=== PATIENT | male | born 1945 | race Caucasian/White ===

== ENCOUNTER → 2016-10-24 | Outpatient (CLI) | payer OTHER | LOC: BMCIMAGING 11:36 | PROVIDERS: ATTEND Nurse Practitioner Adult Health | DX: E04.1 Nontoxic single thyroid nodule (principal) | CPT/HCPCS: 76536-PO ==

== ENCOUNTER → 2017-01-06 | Outpatient (CLI) | payer OTHER ==
[~2017-01-06] MED LIST: LIDOCAINE 1% 300 MG/30 ML SDV ONE
== END ==
LOC: FIMAGING 12:20
PROVIDERS: ATTEND Family Medicine
PROC: 0G9K3ZX Drainage of Thyroid Gland, Percutaneous Approach, Diagnostic (ICD-10-PCS; principal; 2017-01-06)
DX: E04.1 Nontoxic single thyroid nodule (principal)

== ENCOUNTER 2017-03-07 10:28 | Observation (INO) | payer OTHER ==
[2017-03-07] MEDS ORDERED: LIDO/EPI 1% **Not for Epidural 20 ML MDV ONE (11:28)
[2017-03-07] MEDS ORDERED: LR 1,000 ML IV ONE (11:40)
[2017-03-07] MEDS ORDERED: ceFAZolin 2 GM/DEXTROSE 100 ML IV ONE (12:14)
--- NOTE | 2017-03-07 12:14 | PDHPUP ---
History & Physical Update H&P update statement: This history and physical update is based on an assessment of the patient which was completed after admission or registration (within 24 hours), but prior to the surgery/procedure. H&P update: H&P reviewed & patient examined, no change in patient's condition since H&P completed (cleared by PCP)
--- NOTE | 2017-03-07 12:17 | PDANEPAE ---
ANE Past Medical History - Cardiovascular History Hx Hypertension: Yes Hx Arrhythmias: No Hx Chest Pain: No Hx Coronary Artery / Peripheral Vascular Disease: No Hx CHF / Valvular Disease: No Hx Palpitations: No - Pulmonary History Hx COPD: No Hx Asthma/Reactive Airway Disease: No Hx Recent Upper Respiratory Infection: No Hx Oxygen in Use at Home: No Hx Sleep Apnea: No Sleep Apnea Screening Result - Last Documented: Positive - Neurologic History Hx Cerebrovascular Accident: No Hx Seizures: No Hx Dementia: No - Endocrine History Hx Diabetes: No Endocrine History Comment: HYPOTHYROID - Renal History Hx Renal Disorders: Yes Renal History Comment: BPH - Liver History Hx Hepatic Disorders: No - Neurological & Psychiatric Hx Hx Neurological and Psychiatric Disorders: No - Cancer History Hx Cancer: No - Congenital Disorder History Hx Congenital Disorders: No - GI History Hx Gastrointestinal Disorders: No Gastrointestinal History Comment: COLONOSCOPY WITH POLYP REMVL - Other Health History Other Health History: GOUT. NEUROPATHY FEET/AFFECTS BALANCE. MULTIPLE THYROID NODULES - Chronic Pain History Chronic Pain: Yes (NEUROPATHY FEET) - Surgical History Prior Surgeries: RT KNEE SCOPE 2013. TONSILLECTOMY ANE Review of Systems - Exercise capacity METS (RN): 4 METS ANE Patient History - Allergies Allergies/Adverse Reactions: bacitracin Allergy (Verified 03/07/17 11:47) Itching - Home Medications Home Medications: Alfuzosin HCl [Alfuzosin HCl ER] 10 mg PO DAILY 02/03/17 [Last Taken 03/07/17 08 :00] Allopurinol [Allopurinol 100 MG (*)] 300 mg PO DAILY 02/03/17 [Last Taken 08:00] Herbals/Supplements -Info Only 1 ea PO DAILY 02/03/17 [Last Taken 03/03/17] Levothyroxine [Synthroid 100 mcg (*)] 100 mcg PO DAILY06 02/03/17 [Last Taken 08:00] Lisinopril [Zestril 10 mg (*)] 10 mg PO DAILY 02/03/17 [Last Taken 03/07/17 08: 00] [place]-3 Fatty Acids [Fish Oil 1000 mg (*)] 1,000 mg PO DAILY 02/03/17 [Last Taken 1 Week Ago] - NPO status NPO Since - Liquids (Date): 03/07/17 NPO Since - Liquids (Time): 08:00 NPO Since - Solids (Date): 03/06/17 NPO Since - Solids (Time): 20:00 - Smoking Hx Smoking Status: Former smoker ANE Labs/Vital Signs - Vital Signs Blood Pressure: 147/87 Heart Rate: 50 Respiratory Rate: 16 O2 Sat (%): 92 Height: 187.96 cm Weight: 96.162 kg ANE Physical Exam - Airway Mallampati Score: Class 1 - ASA Status ASA Status: II ANE Anesthesia Plan Anesthesia Plan: general endotracheal anesthesia
[2017-03-07] MEDS ORDERED: MIDAZOLAM 2 MG/2 ML VIAL ONE (12:21)
[2017-03-07] MEDS ORDERED: fentaNYL 100 MCG/2 ML INJ ONE ×3 (12:21→15:50)
[2017-03-07] MEDS ORDERED: PROPOFOL 200 MG/20 ML VIAL ONE (12:22)
[2017-03-07] MEDS ORDERED: METOCLOPRAMIDE 10 MG/2 ML VIAL ONE (13:49)
[2017-03-07] MEDS ORDERED: PHENYLEPHRINE HCL 100 MCG/ML SYR ONE (13:49)
[2017-03-07] MEDS ORDERED: ONDANSETRON 4 MG/2 ML VIAL ONE (13:49)
[2017-03-07] MEDS ORDERED: HYDROCODONE/APAP 5/325 TAB PO PRN (15:40)
[2017-03-07] MEDS ORDERED: MEPERIDINE 25 MG/ML SYR IVP PRN (15:40)
[2017-03-07] MEDS ORDERED: LR 500 ML IV PRN (15:40)
[2017-03-07] MEDS ORDERED: PROMETHAZINE HCL 25 MG/ML INJ IVP PRN (15:40)
[2017-03-07] MEDS ORDERED: NALOXONE HCL 0.4 MG/ML INJ IVP PRN (15:40)
[2017-03-07] MEDS ORDERED: OXYCODONE/APAP 5/325 TAB PO PRN (15:40)
--- NOTE | 2017-03-07 15:41 | POSTANESTH ---
Post Anesthetic Evaluation Cardiovascular Status: Similar to Pre-Op Cond Respiratory Status: Normal, Stable Level of Consciousness/Mental Status: Can Participate in Eval Pain Control: Adequate, Prn Tx Ordered Nausea/Vomiting Control: Adequate, Prn Tx Ordered Complications Possibly Related to Anesthesia: None Noted
--- NOTE | 2017-03-07 15:45 | POSTOPPROG ---
Post Op Note Date of Operation: 03/07/17 Surgeon: Marce Quach Gopherman: Lenin Jay MD Anesthesiologist: Sudhakar Mas MD Anesthesia: GET(General Endotracheal) Pre-op Diagnosis: L thyroid nodule, suspicious about malignancy. R central neck LN. Post-op Diagnosis: same Procedure: Total thyroidectomy, R neck node biopsy Findings: R and L brian benign on frozen, R CN node negative for malignancy Inf/Abcess present in the surg proc area at time of surgery?: No Depth: Superfical (Skin SQ) EBL: Minimal Complications: none apparent Drains: Gio Culver
[2017-03-07] MEDS ORDERED: ONDANSETRON 4 MG/2 ML VIAL IVP PRN (15:47)
[2017-03-07] MEDS: fentaNYL 100 MCG/2 ML INJ IVP PRN ×2 (15:51→16:06)
[2017-03-07] MEDS ORDERED: ACETAMINOPHEN 500 MG TAB PO PRN (15:53)
[2017-03-07] MEDS ORDERED: D5W 1/2 NS W/ 20 KCl/L 1,000 ML IV SCH (16:00)
[2017-03-07] MEDS: CALCIUM CARBONATE 500 MG TAB PO SCH (20:36)
[2017-03-07 21:45] LABS: CALCIUM 8.9 mg/dL (8.5-10.4)
[2017-03-07 21:57] LABS: PTH INTACT NO MINERALS 37.4 pg/ml (10.8-79.4)
--- NOTE | 2017-03-07 22:17 | GOP ---
[f rep st] OPERATIVE REPORT DATE OF OPERATION: SURGEON: Marce Quach MD FRESH WORK INSPECTOR: Lenin Alonso MD. ANESTHESIA: General. PREOPERATIVE DIAGNOSIS: 1. Left large thyroid nodule suspicious for malignancy on Afirma testing. 2. Right thyroid nodule. 3. Right central neck enlarged lymph node. POSTOPERATIVE DIAGNOSIS: 1. Left large thyroid nodule suspicious for malignancy on Afirma testing. 2. Right thyroid nodule. 3. Right central neck enlarged lymph node. PROCEDURE PERFORMED: 1. Total thyroidectomy. 2. Right excisional biopsy of central neck node. 3. Recurrent laryngeal nerve monitoring utilizing the [employer] NIM System. FINDINGS: 1. He was found to have a large almost 6 cm nodule replacing most of the left thyroid lobe. This was sent off the field for frozen pathology, and it came back as a follicular lesion that looked benign, but they needed to evaluate the capsular areas for invasion to completely call it benign. 2. The right thyroid lobe, including the firm nodule that we palpated, was noted to be negative for any malignancy. The right central neck lymph node was noted to be negative for malignancy as well. Both recurrent laryngeal nerves were found and identified, and at least the 2 superior parathyroids were visualized, one on each side. Preop PTH was 37 and post op PTH was 41. ESTIMATED BLOOD LOSS: Minimal. COMPLICATIONS: None. INDICATIONS: The patient is a very pleasant 71-year-old man, who has a history of a very large left thyroid nodule that had continued to grow. He had an FNA done by Dr. Her, his manager route, that was sent for Afirma testing, and this showed a finding of suspicious for malignancy. Discussion with Dr. Her , as well as the patient, we elected based on the size of the nodule to just proceed with a total thyroidectomy, as well as for the fact that he had a right thyroid nodule as well. On ultrasound, he was noted to have what was initially called a suspicious right inferior enlarged parathyroid, but PTH and calcium were normal, and so it was suspected this could be an enlarged central lymph node. So, he was scheduled for excisional biopsy of this at the same time. We discussed the risks and benefits of the procedure, and he elected to proceed. DESCRIPTION OF PROCEDURE: The patient was first seen in the preoperative area, where informed consent was obtained. He was then brought back to the operating room, where Anesthesia sedated and intubated him using a NIMS ETT. He was turned 180 degrees, and a shoulder roll was placed. [place] time-out was performed. After confirmation, I marked out the sternal notch, as well as the cricoid, which was being pushed to the right secondary to the large thyroid nodule. I then marked out for a 7 cm incision and a skin crease about 2 fingerbreadths above the sternal notch. This was then infiltrated with 7 cc of 1% lidocaine with 1:100,000 epinephrine, and then the patient was prepped and draped in a sterile fashion. At this point, I then made an incision with a 15 blade scalpel through the skin and subcutaneous tissues, as well as the platysma. Subplatysmal flaps were elevated superiorly and inferiorly, and then Weitlaner retractors were used, as well as [place] retractors for visualization. Once this was done, the strap musculature was divided in the midline, and then it was elevated off of the underlying left thyroid nodule and lobe until it was completely released. A [place] retractor was used to retract the muscle laterally, and then blunt dissection was used to dissect the tissues off of the capsule of the thyroid laterally, as well as medially, thereby delineating the superior pole of the thyroid. The superior pole was grasped using a [place] retractor, and then the superior pole vessels were dissected out gently using blunt dissection. Once the artery and vein were isolated, a medium clip was applied, and then Harmonic scissors were used to divide this inferior to the clip, thereby releasing it and allowing further traction of the thyroid. Once this was done, the thyroid continued to be elevated laterally, as well as inferiorly where the inferior thyroid pole vessels were clamped, ligated, and divided. Once we had this completely released, blunt dissection using the Burlisher, as well as the Harmonic scissors were used to release the thyroid from the underlying tissues, taking care to watch for recurrent laryngeal nerves, as well as the parathyroid. Superior parathyroid had previously been visualized, and this was kept in situ. We continued our dissection until we released the Soler's ligament, and then released the thyroid from the underlying trachea, and then divided it at the isthmus using the Harmonic scissors. This was sent off the field for frozen pathology. At this point, the recurrent laryngeal nerve had been pushed somewhat inferior to the lobe. Gentle dissection was used to visualize the nerve in the tracheoesophageal groove, and the nerve stimulator was used to confirm functionality. Once this was done, we then turned our attention to the right side. We removed the right side in the exact same fashion, with the exception that this was significantly smaller. The right thyroid lobe was very small, but he did have a very firm suspicious feeling nodule at the right inferior aspect of the thyroid. So, at this point the right thyroid lobe was removed as a whole, taking care to find at least the right superior parathyroid, which was kept in situ, and then the recurrent laryngeal nerve was found and dissected up to its entry into the cricoid thyroid joint, thereby allowing us to release the entire right thyroid lobe. This was then sent off the field for frozen pathology as well. He was noted to have a suspicious lymph node that was somewhat black in color just lateral to the recurrent laryngeal nerve on the right side. This was removed using blunt dissection, and sent off the field for frozen pathology as well, as it did look somewhat suspicious for papillary thyroid carcinoma. Once this was done, the recurrent laryngeal nerves were stimulated along both sides, and again 2 superior parathyroids had been found. We waited for the frozen section pathology, and this was noted to be negative for the neck node for pathology. The right thyroid nodule that was suspicious was negative for malignancy. Then the left thyroid nodule was noted to be a follicular lesion that the pathologist stated look benign, but that he did need to evaluate for capsular invasion. So at this point, it was felt our procedure was finished, and so the wound was irrigated out copiously with normal saline and suctioned clear. Any small bleeding vessels were cauterized using bipolar cautery. A Valsalva was given to confirm that there was no active bleeding, which there was none. A small amount of surgicel was placed in the TE groove bilaterally and a 10-Ukrainian round silicone drain was placed exiting at the right lateral aspect of the incision. The drain was sutured to the skin using a 2-0 silk. The strap musculature was closed using 3-0 Vicryl in interrupted fashion. Then the platysma, as well as the subcutaneous tissues were closed using 3-0 Vicryl interrupted fashion. Then a 4-0 Monocryl in a running fashion subcuticularly was used to close the skin. Once this was done, the wound was cleaned and dried , and then Dermabond was used to cover the skin incision. Once this was dried, the patient was turned back over to Anesthesia, where he was awoken, and extubated, and taken to PACU in stable condition. There were no complications. He tolerated the procedure well. His preoperative PTH was 37.8, and the PTH that was drawn 10 minutes after removing the right lobe of the thyroid was 40.2. All instruments and Ray-Evelyn counts were correct at the end of the procedure. /[id number]/MODL MTDD
[2017-03-08 02:58] VITALS: RESP 16
[2017-03-08] MEDS: OXYCODONE/APAP 5/325 TAB PO PRN ×2 (03:39→09:04)
[2017-03-08] MEDS ORDERED: LEVOTHYROXINE 175 MCG TAB PO SCH (06:00)
[2017-03-08 06:49] LABS: CALCIUM 9.1 mg/dL (8.5-10.4)
[2017-03-08 06:52] LABS: PTH INTACT NO MINERALS 31.3 pg/ml (10.8-79.4)
[2017-03-08 07:44] VITALS: BP 123/68; PULSE 51; TEMP 98.5; O2SAT 93
[2017-03-08] MEDS: CALCIUM CARBONATE 500 MG TAB PO SCH (08:55)
[2017-03-08] MEDS ORDERED: LISINOPRIL 10 MG TAB PO SCH (09:00)
--- NOTE | 2017-03-08 10:04 | SOAPPROG ---
SOAP Progress Note Assessment/Plan: Assessment: POD 1 TT and R CN node excisional bx. Frozens negtive for malignancy. Did well o/n. Desatted a little into upper 80s without O2. will fu with outpatient PSG. Has no sxs from nocturnal bradycardia. Call if gets sxs. Ok to d/c home. Needs to go with drain. RN to do training RTC when < 30 cc/24 hrs. D/c with keflex, percocet, calcium carbonate, and synthroid. f.u 1 week Plan: 03/08/17 10:01 Subjective: Did well on. Pain overall controlled, percocet helps. Had some nocturnal migue and desats, was on 1.5-2 L o/n. PTH and Ca normal last night and this am Objective: AFVSS RA neck flat incision c/d/i drain stripped, ~ 15 cc in bulb voice strong Vital Signs Temp Pulse Resp BP Pulse Ox 36.9 C 51 L 16 123/68 H 93 03/08/17 07:40 03/08/17 07:40 03/08/17 07:40 03/08/17 08:55 03/08/17 07:40 03/07/17 03/08/17 03/09/17 05:59 05:59 05:59 Intake Total 1700 Output Total 890 Balance 810 - Pending Discharge Pending Discharge Within 24 Hours: Yes Pending Discharge Date: 03/09/17 Pending Discharge Time: 11:00 ICD10 Worksheet Patient Problems: Problems Problem Status Onset Thyroid nodule Acute - ICD10 Problem Qualifiers (1) Thyroid nodule
--- NOTE | 2017-03-08 10:39 | ASDISCHSUM ---
Discharge Information Plan Status:Home with No Needs Medically Cleared to Leave: Discharge Date: D/C Disposition:Home, Routine, Self-Care ADT D/C Disposition: Projected Discharge Date: Transportation at D/C:Family Discharge Delay Reason: Follow-Up Date: Discharge Slot: Final Diagnosis: Placement Information Patient Contact Information Contact Name:DEREK Relationship: Address:[address] City:[place] Alternate Phone: State/Zip Code:[place] [address] Email: Financial Information Financial Class: Primary Plan Desc:MEDICARE OUTPATIENT Primary Plan Number:[id number] Secondary Plan Desc:[employer] PPO Secondary Plan Number:[id number] Assessment Information Intervention Information
--- NOTE | 2017-03-08 10:42 | ASMTCASEMG ---
Living Arrangements What is your living Answers: With Spouse arrangement? Who do you live with? Discharge Plan Comments Coordination Status Comments Notes: Pt. is a 71-year-old man admitted in OBS status w/ a large thyroid nodule. Had surgery to remove it. Pt. has a drain and bedside RN is training Pt. and family on how to care for it. Pt. lives w/ Kelley. Bedside RN states Pt. will d/c independently to his today. Date Signed: 03/08/2017 10:42 AM Electronically Signed By:Ira Oneal
== END 2017-03-08 11:22 | disposition home or self-care (01) ==
LOC: F3E 11:05
PROVIDERS: ADMIT Otolaryngology; ATTEND Otolaryngology
DX: D34 Benign neoplasm of thyroid gland (principal); E04.2 Nontoxic multinodular goiter; E03.9 Hypothyroidism, unspecified; I10 Essential (primary) hypertension; M10.9 Gout, unspecified; I34.0 Nonrheumatic mitral (valve) insufficiency; N40.0 Benign prostatic hyperplasia without lower urinary tract symptoms
CPT/HCPCS: 38720; 60240; J0690; J2250; J2370; J2405; J2704; J2765; J3010

== ENCOUNTER 2018-05-06 16:51 | Observation (INO) | payer OTHER ==
[2018-05-06] MEDS ORDERED: NS 1,000 ML IV ONE (18:00)
[2018-05-06] MEDS ORDERED: ONDANSETRON 4 MG/2 ML VIAL IVP ONE (18:00)
[2018-05-06] MEDS ORDERED: HYDROmorphONE/DILAUDID 2 MG/ML INJ IVP ONE (18:00)
--- NOTE | 2018-05-06 18:04 | EDPHY ---
H & P Stated Complaint: mid abd pain started 1200 with nausea no diarrhea Time Seen by Provider: 05/06/18 17:58 HPI/ROS: CHIEF COMPLAINT: Right lower quadrant pain HISTORY OF PRESENT ILLNESS: Patient is a 72-year-old man with history of hypertension who comes to the emergency department complaining of abdominal pain throughout the day today and now right lower quadrant pain. Has been nauseous but has not vomited. No diarrhea. No fever. Never had symptoms like this before. No urinary symptoms. Severity: Moderate Modifying factors: Seem to be gradually worsening REVIEW OF SYSTEMS: Constitutional: denies: chills, fever, recent illness, recent injury EENTM: denies: blurred vision, double vision, nose congestion Respiratory: denies: cough, shortness of breath Cardiac: denies: chest pain, irregular heart rate, lightheadedness, palpitations Gastrointestinal/Abdominal: See HPI Genitourinary: denies: dysuria, frequency, hematuria, pain Musculoskeletal: denies: joint pain, muscle pain Skin: denies: lesions, rash, jaundice, bruising Neurological: denies: headache, numbness, paresthesia, tingling, dizziness, weakness Hematologic/Lymphatic: denies: blood clots, easy bleeding, easy bruising Immunologic/allergic: denies: HIV/AIDS, transplant 10 systems reviewed and negative except as noted EXAM: GENERAL: Well-appearing, well-nourished and in no acute distress. HEAD: Atraumatic, normocephalic. EYES: Pupils equal round and reactive to light, extraocular movements intact, sclera anicteric, conjunctiva are normal. ENT: TMs normal, nares patent, oropharynx clear without exudates. Moist mucous membranes. NECK: Normal range of motion, supple without lymphadenopathy or JVD. LUNGS: Breath sounds clear to auscultation bilaterally and equal. No wheezes rales or rhonchi. HEART: Regular rate and rhythm without murmurs, rubs or gallops. ABDOMEN: Right lower quadrant tenderness, normoactive bowel sounds. No guarding, no rebound. No masses appreciated. BACK: No CVA tenderness, no spinal tenderness, step-offs or deformities EXTREMITIES: Normal range of motion, no pitting or edema. No clubbing or cyanosis. NEUROLOGICAL: Cranial nerves II through XII grossly intact. Normal speech, normal gait. 5/5 strength, normal movement in all extremities, normal sensation , normal reflexes PSYCH: Normal mood, normal affect. SKIN: Warm, dry, normal turgor, no visible rashes or lesions. Source: Patient Exam Limitations: No limitations - Personal History Current Tetanus/Diphtheria Vaccine: Yes Current Tetanus Diphtheria and Acellular Pertussis (TDAP): Yes - Medical/Surgical History Hx Asthma: No Hx Chronic Respiratory Disease: No Hx Diabetes: No Hx Cardiac Disease: Yes Hx Renal Disease: No Hx Cirrhosis: No Hx Alcoholism: No Hx HIV/AIDS: No Hx Splenectomy or Spleen Trauma: No Other PMH: HTN, hypothyroidism, ally valve prolapse. bph - Family History Significant Family History: No pertinent family hx - Social History Smoking Status: Former smoker Alcohol Use: Sober Drug Use: None Constitutional: Initial Vital Signs Temperature (C) 36.5 C 05/06/18 17:05 Heart Rate 51 L 05/06/18 17:05 Respiratory Rate 16 05/06/18 17:05 Blood Pressure 133/82 H 05/06/18 17:05 O2 Sat (%) 95 05/06/18 17:05 O2 Delivery Mode Room Air Allergies/Adverse Reactions: bacitracin Allergy (Verified 05/06/18 17:08) Itching Home Medications: Medication Instructions Recorded Alfuzosin HCl [Alfuzosin HCl ER] 10 mg PO DAILY 02/03/17 Allopurinol [Allopurinol 100 MG 300 mg PO DAILY 02/03/17 (*)] Herbals/Supplements -Info Only 1 ea PO DAILY 02/03/17 [place]-3 Fatty Acids [Fish Oil 1000 1,000 mg PO DAILY 02/03/17 mg (*)] Lisinopril [Zestril 10 mg (*)] 10 mg PO DAILY #0 tab 03/08/17 Levothyroxine [Synthroid 150 mcg 150 mcg PO DAILY06 05/06/18 (*)] Hydrocodone/APAP 5/325 [[place] 1 - 2 tab PO Q4HRS PRN #14 tab 05/07/18 5/325 (*)] Sennosides/Docusate Sodium 1 tab PO BID #30 tab 05/07/18 [Senokot-S] Medical Decision Making - Diagnostics Imaging: Discussed imaging studies w/ call center director Radiologist ED Course/Re-evaluation: 7:[address] p[address]. we discussed the CT results. I discussed the case with Dr. Lenin leonardo. I will order cefoxitin and plan for the OR. There is a back up in the OR so the patient go to bed 1st. Differential Diagnosis: Partial list of the Differential diagnosis considered include but were not limited to; appendicitis, urinary tract infection, kidney stone and although unlikely based on the history and physical exam, I also considered diverticulitis, obstruction, volvulus. - Data Points Laboratory Results: Laboratory Results 05/06/18 18:10 05/06/18 18:10 Medications Given: Discontinued Medications Hydrocodone Bitart/Acetaminophen ([place] 5/325) 1 - 2 tab PO Q4HRS PRN PRN Reason: Pain, Moderate Able to Take PO Stop: 05/17/18 00:13 Last Admin: 05/07/18 07:24 Dose: 2 tab Allopurinol (Allopurinol) 300 mg PO DAILY ARLIN Stop: 11/03/18 08:59 Last Admin: 05/07/18 08:54 Dose: 300 mg Bupivacaine HCl (Sensorcaine 0.25% Sdv) Confirm Administered Dose 30 ml .ROUTE .STK-MED ONE Stop: 05/06/18 22:39 Last Admin: 05/06/18 23:44 Dose: 30 ml Enoxaparin Sodium (Lovenox) 40 mg SC DAILY ARLIN Stop: 11/03/18 08:59 Last Admin: 05/07/18 08:57 Dose: Not Given Fentanyl (Sublimaze) 25 - 100 mcg IVP Q5M PRN PRN Reason: PACU, IMMEDIATE Pain control Stop: 05/07/18 01:09 Last Admin: 05/07/18 00:33 Dose: 50 mcg Hydromorphone HCl (Dilaudid) 0.5 mg IVP EDNOW ONE Stop: 05/06/18 18:01 Last Admin: 05/06/18 18:13 Dose: 0.5 mg Sodium Chloride (Ns) 1,000 mls @ 0 mls/hr IV EDNOW ONE; Wide Open PRN Reason: Protocol Stop: 05/06/18 18:01 Last Admin: 05/06/18 18:13 Dose: 1,000 mls Cefoxitin Sodium 2 gm/ Sodium (Chloride) 100 mls @ 200 mls/hr IV ONCALL ONE PRN Reason: Protocol Stop: 05/06/18 20:16 Last Admin: 05/06/18 20:25 Dose: 100 mls Lactated Ringer's (Lr) 1,000 mls @ 0 mls/hr IV ONCE ONE PRN Reason: As Directed Stop: 05/06/18 22:10 Last Admin: 05/06/18 23:02 Dose: 1,000 mls Cefoxitin Sodium 1 gm/ Sodium (Chloride) 50 mls @ 200 mls/hr IV ONCALL ONE PRN Reason: Protocol Stop: 05/06/18 23:14 Last Admin: 05/06/18 23:16 Dose: 50 mls Lactated Ringer's (Lr) 1,000 mls @ 100 mls/hr IV CONT ARLIN Stop: 11/03/18 00:29 Last Admin: 05/07/18 01:03 Dose: 1,000 mls Levothyroxine Sodium (Synthroid) 150 mcg PO DAILY06 [facility] Stop: 11/03/18 05:59 Last Admin: 05/07/18 05:58 Dose: 150 mcg Lisinopril (Zestril) 10 mg PO DAILY ARLIN Stop: 11/03/18 08:59 Last Admin: 05/07/18 08:54 Dose: 10 mg Ondansetron HCl (Zofran) 4 mg IVP EDNOW ONE Stop: 05/06/18 18:01 Last Admin: 05/06/18 18:13 Dose: 4 mg Tamsulosin HCl (Flomax) 0.4 mg PO DAILY [facility] Stop: 11/03/18 08:59 Last Admin: 05/07/18 08:54 Dose: 0.4 mg Departure - Departure Disposition: [facility] Acute Clinical Impression: Acute appendicitis Qualifiers: Acute appendicitis type: with localized peritonitis Appendicitis gangrene presence: without gangrene Appendicitis perforation presence: without perforation Appendicitis abscess presence: without abscess Qualified Code(s): K35.30 - Acute appendicitis with localized peritonitis, without perforation or gangrene Condition: Good
[2018-05-06 18:41] LABS: PLATELET COUNT 167 10^3/uL (150-400)
[2018-05-06 18:50] LABS: INR 1.03 (0.83-1.16); PROTIME(PATIENT) 13.7 SEC (12.0-15.0)
[2018-05-06] MEDS ORDERED: IOPAMIDOL (ISOVUE-300) 100 ML BTL ONE (18:52)
[2018-05-06] MEDS ORDERED: cefOXitin SODIUM 1 GM in NS 50 ML IV ONE ×2 (19:44→23:00)
[2018-05-06] MEDS ORDERED: cefOXitin SODIUM 2 GM in NS 100 ML IV ONE (19:47)
--- NOTE | 2018-05-06 21:16 | PDGENHP ---
History and Physical - Chief Complaint abd pain - History of Present Illness 72 y/o male with onset of abd pain earlier today. He reports nausea and dry heaves, but no emesis The pain has localized to the RLQ. He was seen and evaluated in the ED by Dr. Farley and surgical consult was requested History Information - Allergies/Home Medication List Allergies/Adverse Reactions: bacitracin Allergy (Verified 05/06/18 17:08) Itching Home Medications: Alfuzosin HCl [Alfuzosin HCl ER] 10 mg PO DAILY 02/03/17 [Last Taken 05/06/18] Allopurinol [Allopurinol 100 MG (*)] 300 mg PO DAILY 02/03/17 [Last Taken ] Herbals/Supplements -Info Only 1 ea PO DAILY 02/03/17 [Last Taken 05/06/18] [place]-3 Fatty Acids [Fish Oil 1000 mg (*)] 1,000 mg PO DAILY 02/03/17 [Last Taken 05/06/18 09:00] Levothyroxine [Synthroid 150 mcg (*)] 150 mcg PO DAILY06 05/06/18 [Last Taken ] I have personally reviewed and updated: family history, medical history, social history, surgical history - Past Medical History hypertension - Surgical History Reports: thyroid surgery (benign goiter/total thyroidectomy) Additional surgical history: right knee arthroscopy - Social History Smoking Status: Former smoker Alcohol Use: Sober Drug Use: None Review of Systems Review of Systems: Physical Exam Physical Exam: Temp Pulse Resp BP Pulse Ox 36.5 C 63 16 152/79 H 96 05/06/18 17:05 05/06/18 20:00 05/06/18 20:00 05/06/18 20:00 05/06/18 20:00 Lab Data & Imaging Review 05/06/18 18:10 05/06/18 18:10 WBC 11.12 10^3/uL (3.80-9.50) H 05/06/18 18:10 RBC 5.33 10^6/uL (4.40-6.38) 05/06/18 18:10 Hgb 16.0 g/dL (13.7-17.5) 05/06/18 18:10 Hct 47.7 % (40.0-51.0) 05/06/18 18:10 MCV 89.5 fL (81.5-99.8) 05/06/18 18:10 MCH 30.0 pg (27.9-34.1) 05/06/18 18:10 MCHC 33.5 g/dL (32.4-36.7) 05/06/18 18:10 RDW 12.7 % (11.5-15.2) 05/06/18 18:10 Plt Count 167 10^3/uL (150-400) 05/06/18 18:10 MPV 10.3 fL (8.7-11.7) 05/06/18 18:10 Neut % (Auto) 90.8 % (39.3-74.2) H 05/06/18 18:10 Lymph % (Auto) 4.9 % (15.0-45.0) L 05/06/18 18:10 [place] % (Auto) 3.4 % (4.5-13.0) L 05/06/18 18:10 Eos % (Auto) 0.2 % (0.6-7.6) L 05/06/18 18:10 Baso % (Auto) 0.3 % (0.3-1.7) 05/06/18 18:10 Nucleat RBC Rel Count 0.0 % (0.0-0.2) 05/06/18 18:10 Absolute Neuts (auto) 10.10 10^3/uL (1.70-6.50) H 05/06/18 18:10 Absolute Lymphs (auto) 0.54 10^3/uL (1.00-3.00) L 05/06/18 18:10 Absolute Monos (auto) 0.38 10^3/uL (0.30-0.80) 05/06/18 18:10 Absolute Eos (auto) 0.02 10^3/uL (0.03-0.40) L 05/06/18 18:10 Absolute Basos (auto) 0.03 10^3/uL (0.02-0.10) 05/06/18 18:10 Absolute Nucleated RBC 0.00 10^3/uL (0-0.01) 05/06/18 18:10 Immature Gran % 0.4 % (0.0-1.1) 05/06/18 18:10 Immature Gran # 0.04 10^3/uL (0.00-0.10) 05/06/18 18:10 RBC/WBC/PLT Morphology TNP 05/06/18 18:10 Platelet Estimate TNP 05/06/18 18:10 PT 13.7 SEC (12.0-15.0) 05/06/18 18:10 INR 1.03 (0.83-1.16) 05/06/18 18:10 APTT 27.0 SEC (23.0-38.0) 05/06/18 18:10 Sodium 140 mEq/L (135-145) 05/06/18 18:10 Potassium 4.3 mEq/L (3.3-5.0) 05/06/18 18:10 Chloride 105 mEq/L (97-110) 05/06/18 18:10 Carbon Dioxide 24 mEq/l (22-31) 05/06/18 18:10 Anion Gap 11 mEq/L (6-14) 05/06/18 18:10 BUN 21 mg/dL (7-23) 05/06/18 18:10 Creatinine 1.0 mg/dL (0.7-1.3) 05/06/18 18:10 Estimated GFR > 60 05/06/18 18:10 Glucose 127 mg/dL (70-100) H 05/06/18 18:10 Calcium 10.5 mg/dL (8.5-10.4) H 05/06/18 18:10 Total Bilirubin 0.8 mg/dL (0.1-1.4) 05/06/18 18:10 Conjugated Bilirubin 0.3 mg/dL (0.0-0.5) 05/06/18 18:10 Unconjugated Bilirubin 0.5 mg/dL (0.0-1.1) 05/06/18 18:10 AST 32 IU/L (17-59) 05/06/18 18:10 ALT 38 IU/L (21-72) 05/06/18 18:10 Alkaline Phosphatase 85 IU/L (38-126) 05/06/18 18:10 Total Protein 8.1 g/dL (6.3-8.2) 05/06/18 18:10 Albumin 4.9 g/dL (3.5-5.0) 05/06/18 18:10 Lipase 44 IU/L (23-300) 05/06/18 18:10 Assessment & Plan Assessment: Acute appendicitis (Acute)
[2018-05-06] MEDS ORDERED: LR 1,000 ML IV ONE (22:09)
--- NOTE | 2018-05-06 22:30 | PDANEPAE ---
ANE Past Medical History - Cardiovascular History Hx Hypertension: Yes Hx Arrhythmias: No Hx Chest Pain: No Hx Coronary Artery / Peripheral Vascular Disease: No Hx CHF / Valvular Disease: No Hx Palpitations: No - Pulmonary History Hx COPD: No Hx Asthma/Reactive Airway Disease: No Hx Recent Upper Respiratory Infection: No Hx Oxygen in Use at Home: No Hx Sleep Apnea: No - Neurologic History Hx Cerebrovascular Accident: No Hx Seizures: No Hx Dementia: No - Endocrine History Hx Diabetes: No Hypothyroid: Yes Endocrine History Comment: HYPOTHYROID - Renal History Hx Renal Disorders: Yes Renal History Comment: BPH - Liver History Hx Hepatic Disorders: No - Neurological & Psychiatric Hx Hx Neurological and Psychiatric Disorders: No - Cancer History Hx Cancer: No - Congenital Disorder History Hx Congenital Disorders: No - GI History Hx Gastrointestinal Disorders: No Gastrointestinal History Comment: COLONOSCOPY WITH POLYP REMVL - Other Health History Other Health History: GOUT. NEUROPATHY FEET/AFFECTS BALANCE. MULTIPLE THYROID NODULES - Chronic Pain History Chronic Pain: Yes (NEUROPATHY FEET) - Surgical History Prior Surgeries: RT KNEE SCOPE 2013. TONSILLECTOMY ANE Review of Systems Review of Systems: ANE Patient History - Allergies Allergies/Adverse Reactions: bacitracin Allergy (Verified 05/06/18 17:08) Itching - Home Medications Home Medications: Alfuzosin HCl [Alfuzosin HCl ER] 10 mg PO DAILY 02/03/17 [Last Taken 05/06/18] Allopurinol [Allopurinol 100 MG (*)] 300 mg PO DAILY 02/03/17 [Last Taken ] Herbals/Supplements -Info Only 1 ea PO DAILY 02/03/17 [Last Taken 05/06/18] [place]-3 Fatty Acids [Fish Oil 1000 mg (*)] 1,000 mg PO DAILY 02/03/17 [Last Taken 05/06/18 09:00] Levothyroxine [Synthroid 150 mcg (*)] 150 mcg PO DAILY06 05/06/18 [Last Taken ] - NPO status NPO Since - Liquids (Date): 05/06/18 NPO Since - Liquids (Time): 16:00 NPO Since - Solids (Date): 05/06/18 NPO Since - Solids (Time): 08:00 - Smoking Hx Smoking Status: Former smoker - Alcohol Use Alcohol Use: Sober ANE Labs/Vital Signs - Labs Result Diagrams: 05/06/18 18:10 05/06/18 18:10 - Vital Signs Blood Pressure: 139/90 Heart Rate: 57 Respiratory Rate: 16 O2 Sat (%): 93 Height: 187.96 cm Weight: 99.79 kg ANE Physical Exam - ASA Status ASA Status: II, E ANE Anesthesia Plan Anesthesia Plan: general endotracheal anesthesia
[2018-05-06] MEDS ORDERED: BUPIVACAINE 0.25% 30 ML SDV ONE (22:38)
[2018-05-06] MEDS ORDERED: MIDAZOLAM 2 MG/2 ML VIAL ONE (22:50)
[2018-05-06] MEDS ORDERED: PROPOFOL 200 MG/20 ML VIAL ONE (22:51)
[2018-05-06] MEDS ORDERED: fentaNYL 100 MCG/2 ML INJ ONE (22:51)
[2018-05-06] MEDS ORDERED: ONDANSETRON 4 MG/2 ML VIAL ONE (22:54)
[2018-05-06] MEDS ORDERED: ROCURONIUM 50 MG/5 ML VIAL ONE (22:54)
[2018-05-06] MEDS ORDERED: METOCLOPRAMIDE 10 MG/2 ML VIAL ONE (22:54)
[2018-05-06] MEDS ORDERED: SUGAMMADEX SODIUM 200 MG/2 ML VIAL IVP ONE (23:49)
[2018-05-07] MEDS ORDERED: NALOXONE HCL 0.4 MG/ML INJ IVP PRN (00:09)
[2018-05-07] MEDS ORDERED: fentaNYL 100 MCG/2 ML INJ IVP PRN (00:09)
[2018-05-07] MEDS ORDERED: LR 500 ML IV PRN (00:09)
[2018-05-07] MEDS ORDERED: PROMETHAZINE HCL 25 MG/ML INJ IVP PRN (00:09)
--- NOTE | 2018-05-07 00:10 | POSTANESTH ---
Post Anesthetic Evaluation Cardiovascular Status: Normal, Stable Respiratory Status: Normal, Stable Level of Consciousness/Mental Status: Can Participate in Eval Pain Control: Adequate, Prn Tx Ordered Nausea/Vomiting Control: Adequate, Prn Tx Ordered Complications Possibly Related to Anesthesia: None Noted
[2018-05-07] MEDS ORDERED: ONDANSETRON 4 MG/2 ML VIAL IVP PRN (00:14)
--- NOTE | 2018-05-07 00:14 | POSTOPPROG ---
Post Op Note Date of Operation: 05/07/18 Surgeon: Jhon Alonso (, FACS) Anesthesiologist: Sudhakar Mas MD Anesthesia: GET(General Endotracheal) Pre-op Diagnosis: acute appendicitis Procedure: laparoscopic appendectomy Findings: acute suppurative appendicitis Inf/Abcess present in the surg proc area at time of surgery?: Yes Depth: Organ Space EBL: Minimal (10ml)
[2018-05-07] MEDS ORDERED: fentaNYL 100 MCG/2 ML INJ ONE (00:29)
[2018-05-07] MEDS ORDERED: LR 1,000 ML IV SCH (00:30)
[2018-05-07] MEDS: HYDROCODONE/APAP 5/325 TAB PO PRN ×2 (01:06→07:24)
[2018-05-07] MEDS ORDERED: LEVOTHYROXINE 150 MCG TAB PO SCH (06:00)
--- NOTE | 2018-05-07 07:07 | GOP ---
DATE OF OPERATION: 05/06/2018 SURGEON: Jhon Alonso MD, FACS ANESTHESIA: General endotracheal. ANESTHESIOLOGIST: Sudhakar Mas MD. PREOPERATIVE DIAGNOSIS: Acute appendicitis. POSTOPERATIVE DIAGNOSIS: Acute appendicitis. PROCEDURE PERFORMED: Laparoscopic appendectomy. FINDINGS: Acute suppurative appendicitis without perforation or gangrene. ESTIMATED BLOOD LOSS: 10 cc. DESCRIPTION OF PROCEDURE: After informed consent was obtained, the patient was brought to the operating room and placed under general anesthesia. The abdomen was prepped and draped in the usual fashion, and before proceeding with the operation, a time-out and identification of the patient were performed. 0.25% Marcaine was used to infiltrate all incision sites. A transverse incision was made below the umbilicus and carried through skin and subcutaneous tissues. With ventral traction applied to the abdominal wall, a Veress needle was introduced into the peritoneal cavity and position confirmed by saline infusion. A pneumoperitoneum was established with CO2 gas to a pressure of 15 mmHg. The Veress needle was withdrawn and replaced with a 5 mm bladeless trocar. A 30 degree 5 mm scope was introduced and the peritoneal cavity was visualized. An additional 5 mm port was placed in the suprapubic position and a 12 mm port in the left lower quadrant, both under direct visualization. This allowed introduction of atraumatic grasping forceps. These were used to mobilize the cecum, terminal ileum, and the appendix. The mesoappendix was taken down with the LigaSure and the appendix was from the cecum with a single fire of the NITIN stapler. The appendix was retrieved through the left lower quadrant port site using an Endopouch. The operative field appeared hemostatic. The left lower quadrant incision was closed with an 0 Vicryl suture in a horizontal mattress fashion using a Srinivasan needle. The pneumoperitoneum was evacuated. The remaining ports were removed, and the subcutaneous tissues and skin closed with 3-0 and 4-0 Monocryl suture in a subcuticular fashion. Topical Dermabond was applied. Patient was extubated and brought to the recovery room in satisfactory condition. COUNTS: Needle, sponge, and instrument count were correct. COMPLICATIONS: None. /[id number]/MODL MTDD
--- NOTE | 2018-05-07 07:37 | PDDCSUM ---
Discharge Summary Discharge Summary: #[id number] JOLYNN Alonso MD, FACS
[2018-05-07 07:44] VITALS: BP 119/75
--- NOTE | 2018-05-07 08:11 | GDS ---
DISCHARGE DIAGNOSES: 1. Acute appendicitis. 2. Hypertension. 3. History of gout. 4. Benign prostatic hypertrophy. 5. Surgically induced hypothyroidism. NAME OF PROCEDURE: Laparoscopic appendectomy. HOSPITAL COURSE: For details of admission history and physical, please see dictated summary. Briefl y, the patient is a 72-year-old male who presents with a 1-day history of abdominal pain and was foun d to have acute appendicitis. He received 2 g of Mefoxin in the emergency room and was re-dosed prio r to surgery several hours later. At the time of surgery, he was found to have acute suppurative ruperto endicitis, underwent uncomplicated laparoscopic appendectomy. The patient was admitted for postoperative observation. He remained afebrile, tolerated a soft diet, and was discharged home the following morning, given instructions in diet and activity advancement, and will follow up in my office in 1 to 2 weeks. DISCHARGE MEDICATIONS: Patient will resume Alfuzosin 10 mg p.o. daily, allopurinol 300 mg p.o. daily , levothyroxine 150 mcg p.o. daily, lisinopril 10 mg p.o. daily. In addition, was given a prescripti on for hydrocodone 1 to 2 q.4 hours p.r.n. pain #14, and Senokot S 1 p.o. b.i.d. #30. /[id number]/MODL
[2018-05-07] MEDS ORDERED: ENOXAPARIN 40 MG/0.4 ML SYR SC SCH (09:00)
[2018-05-07] MEDS ORDERED: ALLOPURINOL 300 MG TAB PO SCH (09:00)
[2018-05-07] MEDS ORDERED: LISINOPRIL 10 MG TAB PO SCH (09:00)
[2018-05-07] MEDS ORDERED: TAMSULOSIN HCL 0.4 MG CAP PO SCH (09:00)
--- NOTE | 2018-05-07 10:08 | ASDISCHSUM ---
Discharge Information Plan Status:Home with No Needs Medically Cleared to Leave:05/07/2018 Discharge Date:05/07/2018 CM D/C Disposition:Home, Routine, Self-Care ADT D/C Disposition: Projected Discharge Date:05/07/2018 Transportation at D/C:Family Discharge Delay Reason: Follow-Up Date:05/07/2018 Discharge Slot: Final Diagnosis: Placement Information Patient Contact Information Contact Name:DEREK Relationship: Address:[address] City:[place] Alternate Phone: State/Zip Code:[place] [address] Email: Financial Information Financial Class:Medicare Primary Plan Desc:MEDICARE OUTPATIENT Primary Plan Number:[id number] Secondary Plan Desc:[employer] [place] PPO Secondary Plan Number:[id number] Assessment Information LACE LACE Length of stay for Answers: Less than 1 day current admission Acuity / Level of Answers: Yes Care: Did the patient have an inpatient admission? Comorbidities - select Answers: Other Notes: HTN, BPH, s/p all that apply thyroidectomy # of Emergency department Answers: 1-2 visits in the last 6 months Score: 5 Date Signed: 05/07/2018 10:08 AM Electronically Signed By:Genna Diaz RN Intervention Information
== END 2018-05-07 11:03 | disposition home or self-care (01) ==
LOC: F3E 05-07 00:54
PROVIDERS: ADMIT Surgery; ATTEND Surgery
PROC: 0DTJ4ZZ Resection of Appendix, Percutaneous Endoscopic Approach (ICD-10-PCS; principal; 2018-05-07)
DX: K35.80 Unspecified acute appendicitis (principal); E86.9 Volume depletion, unspecified; I10 Essential (primary) hypertension; M10.9 Gout, unspecified; N40.0 Benign prostatic hyperplasia without lower urinary tract symptoms; E89.0 Postprocedural hypothyroidism; I34.1 Nonrheumatic mitral (valve) prolapse; M51.37 Other intervertebral disc degeneration, lumbosacral region; N28.1 Cyst of kidney, acquired; Z87.891 Personal history of nicotine dependence
CPT/HCPCS: 44970; 74177; 88304; 96361; 96365; 96375; 99285; G0378; J0694; J1170; J2250; J2405; J2704; J2765; J3010; Q9967; J1650